=== PATIENT | female | born 1965 | race Caucasian/White ===

== ENCOUNTER 2018-05-01 23:26 | Emergency (ER) | payer MEDICAID ==
[~2018-05-01] VITALS: Ht 167.6 cm; Wt 63.6 kg
[~2018-05-01 23:26] MED LIST: CARV3.1289 PO; FURO-149 PO
[2018-05-01 23:28] VITALS: BP 131/69
[2018-05-02] MEDS ORDERED: ibuprofen tablet 400 MG TABLET PO ONE (01:15)
[2018-05-02] MEDS ORDERED: AFRIN NS (01:18)
[2018-05-02] MEDS ORDERED: AMOX500C2 PO (01:18)
== END 2018-05-02 01:34 | disposition home or self-care (01) ==
LOC: ER 23:26
DX: J06.9 Acute upper respiratory infection, unspecified (principal); I11.0 Hypertensive heart disease with heart failure; I50.9 Heart failure, unspecified; F17.200 Nicotine dependence, unspecified, uncomplicated; Z88.1 Allergy status to other antibiotic agents; Z88.2 Allergy status to sulfonamides; Z88.5 Allergy status to narcotic agent; Z79.899 Other long term (current) drug therapy
CPT/HCPCS: 71046; 99284

== ENCOUNTER 2019-09-02 12:44 | Outpatient (CLI) | payer MEDICAID | END 2019-09-02 23:59 | disposition home or self-care (01) | LOC: CARD DIAG 12:44 | PROVIDERS: ATTEND Internal Medicine | DX: I27.20 Pulmonary hypertension, unspecified (principal); R06.02 Shortness of breath | CPT/HCPCS: 93306 ==

== ENCOUNTER → 2020-04-27 | Outpatient (CLI) | payer MEDICAID | END | disposition home or self-care (01) | LOC: CARD DIAG 13:15 | PROVIDERS: ATTEND Internal Medicine | DX: I08.0 Rheumatic disorders of both mitral and aortic valves (principal) | CPT/HCPCS: 93306 ==